=== PATIENT | female | born 1980 | race Caucasian/White ===

== ENCOUNTER 2017-01-15 15:11 | Emergency (ER) | payer BC ==
[~2017-01-15] VITALS: Ht 170.2 cm; Wt 75.2 kg
[~2017-01-15 15:11] MED LIST: ALPRAZOLAM0.25 M2 PO; CALCIUM MAGNES1 EACH PO; CLONAZEPAM0.5 MG PO; D3 + K2 DOTS 11 EACH PO; FAMOTIDINE20 MG PO; PROTONIX40 MG PO; SERTRALINE HCL50 MG PO; VITRON-C TABLE1 EACH PO
[2017-01-15 15:49] LABS: ADD MIUA? YES; BILIRUBIN NEGATIVE; BLOOD SMALL; COLOR YELLOW ((YELLOW)); GLUCOSE (STRIP) NEGATIVE; KETONES NEGATIVE; LEUKOCYTES NEGATIVE; NITRITE NEGATIVE; PROTEIN (STRIP) NEGATIVE; SPECIFIC GRAVITY 1.021 (1.000-1.030); UROBILINOGEN 0.2 MG/DL (0.2-1.0)
[2017-01-15 15:54] LABS: BACTERIA NONE SEEN /HPF; EPITHELIAL CELLS RARE /HPF; MUCUS 1+ /LPF; RED BLOOD CELLS 0-5 /HPF (0-5); UCUL ADDED? NO; WHITE BLOOD CELLS 0-5 /HPF (0-5)
[2017-01-15 16:01] LABS: HEMATOCRIT 36.4 % (36.0-46.0); MCH 27.4 PG (29.0-34.0); MCHC 32.1 G/DL (30.0-36.0); MCV 85.2 FL (83-99); MEAN PLAT.VOLUME 9.8 uM^3 (9.5-12.4); PLATELET COUNT 218 K/uL (156-360); RBC DIS.WIDTH-CV 13.3 % (11.8-14.6); RBC DIS.WIDTH-SD 41.8 % (39-53); RED BLOOD COUNT 4.27 M/uL (3.80-5.20); WHITE BLOOD COUNT 5.3 K/uL (4.1-10.2)
[2017-01-15 16:10] LABS: CHLORIDE 109 mEq/L (99-109); POTASSIUM 4.1 mEq/L (3.7-5.4); SODIUM 139 mEq/L (136-147)
[2017-01-15 16:11] LABS: GLUCOSE 85 mg/dL (70-99)
[2017-01-15 16:13] LABS: ANION GAP 8 MEQ/L (2-14)
[2017-01-15 16:15] LABS: GFR ESTIMATE (CALCULATED) > 59 mL/min/
[2017-01-15 16:16] LABS: UREA NITROGEN (BUN) 10 mg/dL (9-23)
[2017-01-15] MEDS ORDERED: KEFLEX500 MG PO (16:45)
[2017-01-15 17:18] VITALS: BP 142/99
== END 2017-01-15 17:22 | disposition home or self-care (01) ==
LOC: EME 15:11
PROVIDERS: Nurse Practitioner Family
DX: L03.116 Cellulitis of left lower limb (principal); M79.89 Other specified soft tissue disorders; F41.9 Anxiety disorder, unspecified; Z88.6 Allergy status to analgesic agent
CPT/HCPCS: 80048; 81003; 85027; 99281; 99285